=== PATIENT | male | born 1970 | race Caucasian/White ===

== ENCOUNTER → 2018-11-30 | Outpatient (CLI) | payer BC ==
--- NOTE | 2018-11-30 11:29 | REP ---
Right foot four views : There is no fracture or dislocation. Mineralization and joint spaces are normal. There are no calcifications or foreign bodies. Impression: Negative right foot . Electronically Signed by Alex Bains MD 11/30/2018 11:20 A
== END ==
LOC: M WUC 10:40
PROVIDERS: ATTEND Physician Assistant
DX: M79.671 Pain in right foot (principal)